=== PATIENT | female | born 1950 | race Caucasian/White ===

== ENCOUNTER 2021-01-24 10:18 | Inpatient (IN) | payer OTHER ==
[~2021-01-24] VITALS: Ht 162.6 cm; Wt 69.9 kg
[2021-01-24] MEDS ORDERED: NEURONTIN 300M300 M2 PO ×2 (15:46→15:47)
[2021-01-24] MEDS ORDERED: CHILDREN'S ASPI81 M1 PO (15:48)
[2021-01-24] MEDS ORDERED: PLAVIX 75 MG TA75 MG PO (15:50)
[2021-01-24] MEDS ORDERED: ZYRTEC10 M5 PO (15:50)
[2021-01-24] MEDS ORDERED: BENTYL 10 MG CA10 MG PO (15:51)
[2021-01-24] MEDS ORDERED: NORCO5 PO (15:52)
[2021-01-24] MEDS ORDERED: LOPERAMIDE 2 MG2 M1 PO (15:53)
[2021-01-24] MEDS ORDERED: NAPROSYN500 M1 PO (15:54)
[2021-01-24] MEDS ORDERED: TOPROL XL25 MG PO (15:54)
[2021-01-24] MEDS ORDERED: PROTONIX 20 MG20 MG PO (15:55)
[2021-01-24] MEDS ORDERED: ZOLOFT 50 MG TA50 MG PO (15:56)
[2021-01-24] MEDS ORDERED: TIZANIDINE HCL2 M1 PO (15:56)
[2021-01-24 17:42] LABS: HEMATOCRIT 33.7 % (37.0-47.0); HEMOGLOBIN 11.1 gm/dL (12.0-15.0); MCH 29.2 pg (26.0-34.0); MCHC 33.1 g/dL (28.0-37.0); MCV 88.3 fL (80.0-100.0); RBC 3.81 mil/uL (4.20-5.00); RDW 14.1 % (10.5-14.5); WBC 6.9 thou/uL (4.0-11.0)
[2021-01-24 17:46] LABS: CREATININE 0.8 mg/dL (0.6-1.0); POTASSIUM 3.3 mmol/L (3.5-5.1)
[2021-01-24 20:13] VITALS: BP 106/65
[2021-01-24 23:40] VITALS: BP 117/72
[2021-01-25 04:37] VITALS: BP 128/75
[2021-01-25 04:52] LABS: HEMATOCRIT 33.2 % (37.0-47.0); MCH 29.2 pg (26.0-34.0); MCV 88.3 fL (80.0-100.0); RBC 3.76 mil/uL (4.20-5.00); RDW 14.3 % (10.5-14.5); WBC 7.9 thou/uL (4.0-11.0)
[2021-01-25 05:51] LABS: CALCIUM 8.9 mg/dL (8.5-10.1); CREATININE 0.7 mg/dL (0.6-1.0); POTASSIUM 3.6 mmol/L (3.5-5.1)
[2021-01-25 07:53] VITALS: BP 129/87
[2021-01-25 12:00] VITALS: BP 116/78
[2021-01-25 15:40] VITALS: BP 112/75
[2021-01-25 19:35] VITALS: BP 125/76
[2021-01-26 04:24] LABS: HEMATOCRIT 35.2 % (37.0-47.0); HEMOGLOBIN 11.7 gm/dL (12.0-15.0); MCH 29.4 pg (26.0-34.0); MCHC 33.3 g/dL (28.0-37.0); MCV 88.4 fL (80.0-100.0); RBC 3.98 mil/uL (4.20-5.00); RDW 14.3 % (10.5-14.5); WBC 10.9 thou/uL (4.0-11.0)
[2021-01-26 04:36] VITALS: BP 109/76
[2021-01-26 08:00] VITALS: BP 139/86
[2021-01-26 11:50] VITALS: BP 125/83
--- NOTE | 2021-01-26 15:22 | HC ---
[facility] [place] [address] CONSULTATION Name: KARENCHAPARRITA Room #: 219-P ADM IN M.R.#: [id number] Admission: 01/24/21 Attend Phys: Gino Esposito MD Discharge: Date of : 54 Report #: [id number] THIS REPORT FOR: cc: Twila Mcdaniels MD, Pamela MD Forman,Corey Munoz MD ~ DATE OF SERVICE: 01/25/2021 We were asked to see Chaparrita followed by Dr. Romero. The patient was transferred here from [facility]. HISTORY OF PRESENT ILLNESS: The patient has a history of myocardial infarct on 01/07. A right coronary stent was placed. Bare metal stent was used. There was some hope that the patient would return for stenting for circumflex and LAD lesions, but circumflex lesion did not appear amenable to stent placement when this was attempted and the patient has had unstable angina since that time. The patient was transferred here for definitive treatment. Integrilin was started to bridge the patient over as she was on full dose anticoagulation with Plavix. We note that the catheterization also shows a high-grade proximal posterior descending stenosis, high-grade LAD, diagonal and circumflex lesions. Left ventricular function is satisfactory overall with some inferior apical hypokinesis. PAST MEDICAL HISTORY: Significant for hypertension. The patient denies diabetes mellitus. ALLERGIES: No known allergies, but the patient is INTOLERANT TO LIPITOR. PAST HISTORY: Significant for benign lung lesion. 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 SOCIAL HISTORY: The patient is retired. 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 She is and lives in the area. REVIEW OF SYSTEMS: I agree with the review of systems as dictated by the patient. PHYSICAL EXAMINATION: GENERAL: The patient is sitting in chair comfortably. VITAL SIGNS: Temperature 36.5, heart rate 71, respiratory rate 70, blood pressure 129/87, O2 sat 95 on room air. HEENT: No scleral icterus. No arcus. [facility] [address] [place] [address] CONSULTATION Name: CHAPARRITA JONES Room #: 219-P [facility] IN M.R.#: [id number] Admission: 01/24/21 Attend Phys: Gino Esposito MD Discharge: Date of : 54 Report #: [id number] NECK: No mass, no bruit. CHEST: Clear to auscultation. HEART: Rhythm regular, no murmur. ABDOMEN: Soft. EXTREMITIES: No clubbing, cyanosis or edema. SKIN: No rash or infection. NEUROLOGIC: No motor or sensory dysfunction. MUSCULOSKELETAL: No bone or joint asymmetry or deformity. PSYCHIATRIC: Oriented x3, answers questions appropriately and shows insight into problem. ASSESSMENT AND PLAN: The patient has important 3-vessel coronary artery disease and we note recent bare-metal stent placement. The patient is on an Integrilin bridge until scheduled coronary surgery, which is Wednesday. Risks and details were discussed. Options and alternatives were reviewed. Risks include, but are not limited to, bleeding, infection, anesthesia risks, heart and lung problems, stroke, . The patient understands all of this and she wishes to proceed and agrees with the plan as discussed. Thank you for asking us to see this patient It is a privilege to participate in her care. <ELECTRONICALLY SIGNED> By: Corey Moon MD 01/26/21 1522 1054 1321 Corey Moon MD /nt
[2021-01-26 15:46] VITALS: BP 117/77
[2021-01-26 19:54] VITALS: BP 125/83
[2021-01-27 04:24] VITALS: BP 129/90
--- NOTE | 2021-01-27 06:52 | EKG ---
[address] [address] ELECTROCARDIOGRAM REPORT Name: SWETA JONESYCDulce FALCON Room #: 219-P ADM IN M.R.#: [id number] Admission: 01/24/21 Attend Phys: Gino Esposito MD Discharge: Date of : 54 Report #: [id number] [facility] Test Date: 2021-01-26 Test Time: 10:05:41 Pat Name: KAROL JONES Department: Room: 219 P Gender: F Claim Professional: ABDIRAHMAN : 1950 Requested By: Kp Romero Order Number: [id number] : Harman Goel Measurements Intervals [place] Rate: 85 P: 48 VT: 156 QRS: -33 QRSD: 93 T: -45 QT: 352 QTc: 419 Interpretive Statements Sinus rhythm Inferior infarct, age indeterminate, suspect recent No previous ECG available for comparison Electronically Signed On 01-27-2021 6:52:20 ACETYLENE OPERATOR by Harman Goel [email or web address] <ELECTRONICALLY SIGNED> By: Harman Goel MD, [facility] 01/27/21 0652 1005 1005 Harman Goel MD, FACC /EPI
[2021-01-27 07:55] VITALS: BP 114/67
[2021-01-27 11:43] VITALS: BP 126/87
[2021-01-27 15:28] VITALS: BP 111/77
[2021-01-27 19:07] VITALS: BP 126/79
[2021-01-28] VITALS (8 sets, daily range): BP systolic 102–125; BP diastolic 56–76
[2021-01-28 12:00] LABS: POC BE 1 mmol/L (-2.0 to +3.0); POC CA IONIZED 4.8 mg/dL (4.5-5.3); POC GLUCOSE 124 mg/dL (70-99); POC HCO3 25.1 mmol/L (22.0-26.0); POC HEMOGLOBIN 11.6 g/dL (12.0-15.0); POC POTASSIUM 3.9 mmol/L (3.5-5.1); POC SODIUM 140 mmol/L (136-145); POC pCO2 35.9 mmHg (35.0-45.0); POC pH 7.452 (7.360-7.450)
[2021-01-28 12:08] LABS: WBC 15.1 thou/uL (4.0-11.0)
[2021-01-28 12:09] LABS: MCHC 32.5 g/dL (28.0-37.0); MCV 89.2 fL (80.0-100.0); RBC 2.09 mil/uL (4.20-5.00); RDW 14.5 % (10.5-14.5)
[2021-01-28 12:12] LABS: HEMATOCRIT 18.7 % (37.0-47.0)
[2021-01-28 12:14] LABS: HEMOGLOBIN 6.1 gm/dL (12.0-15.0)
[2021-01-28 12:25] LABS: APTT 30.5 Seconds (24.5-32.8); INR 1.57; PROTIME 16.8 Seconds (10.5-12.1)
[2021-01-28 13:11] LABS: POC BE -4 mmol/L (-2.0 to +3.0); POC CA IONIZED 4.1 mg/dL (4.5-5.3); POC GLUCOSE 144 mg/dL (70-99); POC HCO3 20.6 mmol/L (22.0-26.0); POC HEMOGLOBIN 6.8 g/dL (12.0-15.0); POC POTASSIUM 4.1 mmol/L (3.5-5.1); POC SODIUM 140 mmol/L (136-145); POC pCO2 30.5 mmHg (35.0-45.0); POC pH 7.438 (7.360-7.450)
[2021-01-28 13:11] LABS: POC BE -2 mmol/L (-2.0 to +3.0); POC CA IONIZED 4.1 mg/dL (4.5-5.3); POC GLUCOSE 134 mg/dL (70-99); POC HCO3 21.6 mmol/L (22.0-26.0); POC HEMOGLOBIN 7.1 g/dL (12.0-15.0); POC POTASSIUM 4.2 mmol/L (3.5-5.1); POC SODIUM 139 mmol/L (136-145); POC pCO2 31.4 mmHg (35.0-45.0); POC pH 7.446 (7.360-7.450)
[2021-01-28 13:11] LABS: POC BE -9 mmol/L (-2.0 to +3.0); POC CA IONIZED 3.7 mg/dL (4.5-5.3); POC GLUCOSE 83 mg/dL (70-99); POC HCO3 15.3 mmol/L (22.0-26.0); POC HEMOGLOBIN 8.2 g/dL (12.0-15.0); POC POTASSIUM 2.4 mmol/L (3.5-5.1); POC SODIUM 147 mmol/L (136-145); POC pCO2 23.6 mmHg (35.0-45.0); POC pH 7.419 (7.360-7.450)
[2021-01-28 13:11] LABS: POC BE -2 mmol/L (-2.0 to +3.0); POC CA IONIZED 4.7 mg/dL (4.5-5.3); POC GLUCOSE 144 mg/dL (70-99); POC HCO3 23.6 mmol/L (22.0-26.0); POC HEMOGLOBIN 9.9 g/dL (12.0-15.0); POC POTASSIUM 3.5 mmol/L (3.5-5.1); POC SODIUM 141 mmol/L (136-145); POC pCO2 42.6 mmHg (35.0-45.0); POC pH 7.351 (7.360-7.450)
[2021-01-28 13:12] LABS: POC BE -1 mmol/L (-2.0 to +3.0); POC CA IONIZED 5.2 mg/dL (4.5-5.3); POC GLUCOSE 161 mg/dL (70-99); POC HCO3 23.2 mmol/L (22.0-26.0); POC HEMOGLOBIN 6.5 g/dL (12.0-15.0); POC POTASSIUM 3.9 mmol/L (3.5-5.1); POC SODIUM 141 mmol/L (136-145); POC pCO2 34.9 mmHg (35.0-45.0); POC pH 7.432 (7.360-7.450)
[2021-01-28 13:12] LABS: POC BE -3 mmol/L (-2.0 to +3.0); POC CA IONIZED 4.5 mg/dL (4.5-5.3); POC GLUCOSE 140 mg/dL (70-99); POC HCO3 22.5 mmol/L (22.0-26.0); POC HEMOGLOBIN 8.8 g/dL (12.0-15.0); POC POTASSIUM 3.6 mmol/L (3.5-5.1); POC SODIUM 144 mmol/L (136-145); POC pCO2 42.3 mmHg (35.0-45.0); POC pH 7.333 (7.360-7.450)
[2021-01-28 13:12] LABS: POC BE 1 mmol/L (-2.0 to +3.0); POC CA IONIZED 4.1 mg/dL (4.5-5.3); POC GLUCOSE 165 mg/dL (70-99); POC HCO3 25.4 mmol/L (22.0-26.0); POC HEMOGLOBIN 6.8 g/dL (12.0-15.0); POC POTASSIUM 4.5 mmol/L (3.5-5.1); POC SODIUM 140 mmol/L (136-145); POC pCO2 39.7 mmHg (35.0-45.0); POC pH 7.415 (7.360-7.450)
[2021-01-28 13:12] LABS: POC BE 0 mmol/L (-2.0 to +3.0); POC GLUCOSE 161 mg/dL (70-99); POC HEMOGLOBIN 7.1 g/dL (12.0-15.0); POC POTASSIUM 4.3 mmol/L (3.5-5.1); POC SODIUM 141 mmol/L (136-145); POC pCO2 33.8 mmHg (35.0-45.0)
--- NOTE | 2021-01-28 13:17 | HC ---
[facility] [place] [address] CONSULTATION Name: KAROL JONES Room #: 219-P ADM IN M.R.#: [id number] Admission: 01/24/21 Attend Phys: Gino Esposito MD Discharge: Date of : 54 Report #: [id number] THIS REPORT FOR: cc: Twila Mcdaniels MD,Twila Cuba,Bill JIN ~ DATE OF SERVICE: 01/24/2021 REASON FOR CONSULTATION: Coronary artery disease with multivessel disease. Her hot top liner is Dr. Kp Romero. The patient is being admitted under Dr. Roman. HISTORY OF PRESENT ILLNESS: The patient is a 70-year-old pleasant female known to Dr. Romero's office, was transferred from [place] to [facility] for evaluation for possible coronary artery bypass grafting. The patient had a recent cardiac catheterization, did develop hematoma secondary to the cardiac catheterization in the leg and abdominal wall. The patient did call in having chest pain and was seen in the Emergency Department at [place]. At that point, it was found that she was a bit anemic and was given a unit of blood. The patient denies any current chest pain. She was having chest pain prior to the blood transfusion. She does have significant stenosis in multiple areas identified after cardiac catheterization and the patient sent over here for evaluation. She also has been on Plavix and we will be holding any Plavix doses and starting Integrilin as of tomorrow. CURRENT MEDICATIONS: As follows: 1. Metoprolol 12.5 mg every other day. 2. Crestor. 3. Zoloft. 4. Dicyclomine. 5. Neurontin. 6. Mobic. 7. Hydrocodone for back pain. 8. Aspirin 81 mg. 9. Previously Plavix, but has been held. Last dose was yesterday. ALLERGIES: No known allergies, but SHE IS INTOLERANT TO LIPITOR. PAST MEDICAL HISTORY: Significant for benign lung lesion removed previously, which required subsequently paralyzed right hemidiaphragm, history of hyperlipidemia. No diabetes, no hypertension. FAMILY HISTORY: Negative for heart disease. SOCIAL HISTORY: She is . She is a retired nurse, currently works with [employer]. Denies any smoking or use of alcohol. [place] [address] CONSULTATION Name: KAROL JONES Room #: 219-P [facility] IN .R.#: [id number] Admission: 01/24/21 Attend Phys: Gino Esposito MD Discharge: Date of : 54 Report #: [id number] in [place]. REVIEW OF SYSTEMS: The patient denies any fatigue, difficulty sleeping. Denies any headache, dizziness, or hearing loss. Denies any shortness of breath, dyspnea on exertion, orthopnea. Denies wheezing or coughing. The patient did state she had chest pain a few days ago, but is denying any at this current time. Denies any jaw pain, arm pain, or murmurs. Denies any skin rashes, psoriasis, or eczema. Denies cold feet, night sweats, or lack of concentration. Denies nausea, vomiting, diarrhea or constipation. Denies urinary frequency, hematuria or dysuria. Denies seizures or neuropathy. Denies hallucinations, depression, or anxiety. Denies any lupus, rheumatoid arthritis, or celiac disease. PHYSICAL EXAMINATION: GENERAL: The patient is well-developed, well-nourished, has normal speech and mentation. HEENT: Her eyes are PERRLA. She has a little slight ptosis of upper lids bilaterally. She is normocephalic. Gaze appearing conjugate in all positions. No evidence of nystagmus. No carotid bruits detected. LUNGS: Clear and equal. ABDOMEN: Soft, nontender. Bowel sounds are present in all quadrants. SKIN: Color is normal. No jaundice and also has a normal skin turgor. EXTREMITIES: She has 5/5 strength in all muscle groups. Cranial nerves II-XII are examined and intact. NEUROLOGIC: The patient is alert and oriented x 3. LABORATORY DATA: As follows: White blood cell count 8.5, hemoglobin 9.8, hematocrit 29.8, platelets 222. Sodium 144, potassium 3.6, chloride is 107, CO2 is 32, BUN is 10, creatinine 0.6 and glucose is 101. A1c is 5.9. The patient did have elevated troponin coming from [place], which previously was 173. COVID is negative. MRSA is negative. UA is also negative. Carotid ultrasound study was done. No significant stenosis noted. Echo done shows 60% ejection fraction. Her cardiac catheterization report shows as follows: LAD shows a 90% proximal lesion with a 90% mid lesion, diagonal shows a 60% ostial lesion, and a 90% mid lesion. Circumflex has an 80% proximal with 99% blockage just before the takeoff of the second marginal. Right coronary artery has a long stent with 50% stenosis just beyond the stent and the right PDA is very small, but shows 90% blockage. IMPRESSION: Coronary artery disease with above listed pathology on a patient, who was previously on Plavix and also hyperlipidemia with a right hemidiaphragm. PLAN: We will do a P2Y12 to elicit the responsiveness to Plavix. CBC, BMP to assess after the patient getting a unit of blood from [facility] previous to surgery. We will hold any Plavix. We will start Integrilin bolus at 8:00 a.m. [facility] [address] [place] [address] CONSULTATION Name: KAROL JONES Room #: 219-P ADM IN M.R.#: [id number] Admission: 01/24/21 Attend Phys: Gino Esposito MD Discharge: Date of : 54 Report #: [id number] followed by a drip and continue to watch the patient and proceed on with plans for coronary artery bypass grafting on 01/28/2021. Dr. Moon will be seeing the patient tomorrow as well as Dr. Romero. <ELECTRONICALLY SIGNED> By: ANNABEL Mireles 01/28/21 1317 1429 2344 ANNABEL Mireles /nt
[2021-01-28 13:42] LABS: BE(vivo) -4.9 mmol/L (-2 to +3); HCO3 21.4 mmol/L (22.0-26.0); PCO2 44.8 mmHg (35.0-45.0); PO2 156.8 mmHg (80.0-100.0); pH 7.297 (7.360-7.450); sO2 98.8 % (92.0-98.0)
[2021-01-28 13:48] LABS: HEMATOCRIT 29.9 % (37.0-47.0); MCH 29.2 pg (26.0-34.0); MCHC 32.6 g/dL (28.0-37.0); MCV 89.7 fL (80.0-100.0); RBC 3.34 mil/uL (4.20-5.00); WBC 15.1 thou/uL (4.0-11.0)
[2021-01-28 13:52] LABS: HEMOGLOBIN 9.8 gm/dL (12.0-15.0)
[2021-01-28 14:00] LABS: CALCIUM 7.9 mg/dL (8.5-10.1); CREATININE 0.7 mg/dL (0.6-1.0); MAGNESIUM 2.1 mg/dL (1.8-2.4); POTASSIUM 3.7 mmol/L (3.5-5.1)
[2021-01-28 14:03] LABS: INR 1.08; PROTIME 11.7 Seconds (10.5-12.1)
[2021-01-28 19:11] LABS: BE(vivo) -12.6 mmol/L (-2 to +3); HCO3 11.7 mmol/L (22.0-26.0); PO2 144.5 mmHg (80.0-100.0); pH 7.363 (7.360-7.450); sO2 98.8 % (92.0-98.0)
[2021-01-28 19:13] LABS: PCO2 21.1 mmHg (35.0-45.0)
[2021-01-28 20:01] LABS: BE(vivo) -9.1 mmol/L (-2 to +3); HCO3 15.9 mmol/L (22.0-26.0); PCO2 30.8 mmHg (35.0-45.0); PO2 145.9 mmHg (80.0-100.0); sO2 98.8 % (92.0-98.0)
[2021-01-29 01:37] VITALS: BP 115/72
[2021-01-29 05:38] VITALS: BP 107/64
[2021-01-29 06:11] LABS: HEMOGLOBIN 8.2 gm/dL (12.0-15.0); MCH 30.5 pg (26.0-34.0); MCV 89.7 fL (80.0-100.0); RBC 2.68 mil/uL (4.20-5.00); RDW 14.9 % (10.5-14.5); WBC 10.2 thou/uL (4.0-11.0)
[2021-01-29 06:17] LABS: CALCIUM 8.3 mg/dL (8.5-10.1); CREATININE 0.7 mg/dL (0.6-1.0); MAGNESIUM 2.1 mg/dL (1.8-2.4); POTASSIUM 3.6 mmol/L (3.5-5.1)
--- NOTE | 2021-01-29 07:19 | EKG ---
[address] [address] ELECTROCARDIOGRAM REPORT Name: KAROL JONES Room #: 251-P ADM IN M.R.#: [id number] Admission: 01/24/21 Attend Phys: Gino Esposito MD Discharge: Date of : 54 Report #: [id number] [facility] Test Date: 2021-01-28 Test Time: 14:22:39 Pat Name: KAROL JONES Department: Room: [facility] Gender: F Maltster: STEPHEN : 1950 Requested By: Bill Cuba Order Number: [id number] MD: Harman Goel Measurements Intervals [place] Rate: 95 P: 63 AK: 159 QRS: 14 QRSD: 139 T: -77 QT: 393 QTc: 494 Interpretive Statements Sinus rhythm Nonspecific intraventricular conduction delay Inferoposterior infarct, recent Lateral leads are also involved Compared to ECG 01/26/2021 10:05:41 Intraventricular conduction delay now present Myocardial infarct finding still present Electronically Signed On 01-29-2021 7:19:05 INVESTMENT REPRESENTATIVE by Harman Goel [email or web address] <ELECTRONICALLY SIGNED> By: Harman Goel MD, FACC 01/29/21 0719 142 142 Harman Goel MD, FAC /EPI
[2021-01-29 13:37] VITALS: BP 106/63
--- NOTE | 2021-01-29 15:43 | EKG ---
[address] [place] [address] ELECTROCARDIOGRAM REPORT Name: SWETA JONESYCE EZEKIEL Room #: 251- ADM IN M.R.#: [id number] Admission: 01/24/21 Attend Phys: Gino Esposito MD Discharge: Date of : 54 Report #: [id number] [facility] Test Date: 2021-01-29 Test Time: 07:47:20 Pat Name: KAROL JONES Department: Room: 251 Gender: F Cnc Cutting Operator: STEPHEN : 1950 Requested By: Bill Cuba Order Number: [id number] MD: Harman Goel Measurements Intervals [place] Rate: 86 P: 43 DE: 147 QRS: -1 QRSD: 88 T: -14 QT: 385 QTc: 461 Interpretive Statements Sinus rhythm Abnormal R-wave progression, early transition LVH by voltage Inferior infarct, age indeterminate Lateral leads are also involved Compared to ECG 01/28/2021 14:22:39 Left ventricular hypertrophy now present Intraventricular conduction delay no longer present Myocardial infarct finding still present Electronically Signed On 01-29-2021 15:43:01 NUCLEAR WASTE MANAGEMENT ENGINEER by Harman Goel [email or web address] <ELECTRONICALLY SIGNED> By: Harman Goel MD, FAC 01/29/21 1543 0747 0747 Harman Goel MD, [facility] /EPI
--- NOTE | 2021-01-29 17:28 | HC ---
[facility] [place] [address] CONSULTATION Name: KAROL JONES Room #: 251-P ADM IN M.R.#: [id number] Admission: 01/24/21 Attend Phys: Gino Esposito MD Discharge: Date of : 54 Report #: [id number] THIS REPORT FOR: cc: Twila Mcdaniels MD,Twila Romero,Kp Crews MD FAC ~ cc: Twila Mcdaniels MD DATE OF SERVICE: 01/24/2021 CARDIOLOGY CONSULTATION HISTORY OF PRESENT ILLNESS: The patient is a 70-year-old white female who was transferred from [place] to [facility] today for consideration of coronary artery bypass surgery. The patient apparently had an episode of atrial fibrillation years ago and has been on a beta everardo and aspirin. She presented to [place] on the morning of 01/07 when she awakened at 2 in the morning with chest pain that went intoleft arm. She became short of breath, nauseated, diaphoretic. Ambulance was called. She was brought to [place] at approximately 5 a.m. She was found to be having evidence of acute inferior STEMI. I took her urgently to the cardiac catheterization lab and performed cardiac catheterization from the right femoral artery. The right coronary artery was acutely occluded proximally. Circumflex had a 90% mid stenosis. There was a 90% narrowing of the mid LAD. I then performed an emergent angioplasty and placed two bare metal stents in the right coronary artery. Ejection fraction was preserved. She was started on Plavix. She was discharged 2 days later and the plan was to electively admit her for attempts at stenting of the LAD and circumflex. After discharge, she had no further chest pain. She came to [place] on January 20 as an outpatient. I performed intervention from the left femoral artery. Results showed the stent in the right coronary widely patent. She again was noted to have a 90% narrowing of the mid circumflex and LAD. I attempted angioplasty of the circumflex. However, due to tortuosity and calcification, I could not advance the balloon to the area of stenosis. The procedure was abandoned. She tolerated the procedure well. An Angio-Seal was placed to the left femoral artery. Unfortunately, she developed a large hematoma of the left groin. She was hypotensive following the procedure and was sent to the ICU for observation overnight on dopamine and fluids. Fortunately, she had no further chest pain. She was discharged the following day on January 21 and was taken off the metoprolol, but continued on aspirin and Plavix. She did well until the next day on January 22. She was in bed when she felt pain in her chest and her back. She felt short of breath. She took two nitroglycerin which did not seem to help. She called the ambulance and was brought back to [place] on 01/22 and was admitted. She was noted to have significant anemia from blood loss of the hematoma. She was transfused. Her chest pain resolved. She did undergo an ultrasound of her left femoral artery that showed only hematoma, but no pseudoaneurysm. She underwent a CT [address] [address] CONSULTATION Name: KAROL JONES Room #: 251-P [facility] IN .R.#: [id number] Admission: 01/24/21 Attend Phys: Gino Esposito MD Discharge: Date of : 54 Report #: [id number] scan of the abdomen that showed no evidence of retroperitoneal hematoma. There was a large hematoma. It was decided at this time that the patient would require bypass surgery. She is being transferred today to [facility] for anticipation of the surgery. PAST MEDICAL HISTORY: Significant for previous thoracotomy for removal of a benign lesion in the past and subsequently developed paralyzed right hemidiaphragm. She has a history of hyperlipidemia. No diabetes or hypertension. Previous history of atrial fibrillation. CURRENT MEDICATIONS: Include metoprolol 12.5 mg twice a day, Crestor, Zoloft, dicyclomine, Neurontin for chronic back pain, Mobic, hydrocodone, aspirin. Her Plavix was discontinued on 01/23 in anticipation of surgery. ALLERGIES: SHE HAS A PREVIOUS INTOLERANCE TO LIPITOR. FAMILY HISTORY: Negative for heart disease. SOCIAL HISTORY: She is . She is a retired nurse. Currently, works doing real estate. No smoking, alcohol abuse. Lives with her in [place]. REVIEW OF SYSTEMS: No history of stroke, asthma, liver disease, kidney disease, cancer, chronic skin condition, psychiatric illness. She wears glasses. She has chronic back pain. PHYSICAL EXAMINATION: GENERAL: Revealed a middle-aged female. VITAL SIGNS: Blood pressure 100/60, pulse 60, she is afebrile. HEENT: Mucous membranes moist. She was anicteric. Conjunctivae pink. NECK: Neck veins nondistended. No carotid bruits. CHEST: Clear to auscultation. CARDIAC: Regular rate and rhythm. ABDOMEN: Soft. EXTREMITIES: Had no edema. There is a large hematoma in the left groin area. Dorsalis pedis pulse 1+ bilaterally. SKIN: Cool and dry. NEUROLOGIC: Nonfocal. LABORATORY DATA: Her ECG showed sinus rhythm with evidence of previous inferior infarction, but no acute ST or T-wave changes. Chest x-ray was unremarkable. The patient had an echocardiogram on 01/20 two weeks following her myocardial infarction that showed ejection fraction of 60% with only trace mitral regurgitation. The patient had carotid Doppler study performed in anticipation of bypass surgery that showed no significant stenosis. She also had venous [facility] [address] [place] [address] CONSULTATION Name: KARENKAROL EZEKIEL Room #: 251-P [place] [place] IN M.R.#: [id number] Admission: 01/24/21 Attend Phys: Gino Esposito MD Discharge: Date of : 54 Report #: [id number] mapping performed prior to discharge. IMPRESSION AND RECOMMENDATIONS: 1. Coronary artery disease 2. Recurrent angina. Recommend bypass surgery. The patient's last dose of Plavix was 01/23. The patient is scheduled for bypass surgery at [facility] on January 28. On Wednesday, 01/25, I would start intravenous Integrilin since the patient will be off Plavix and then discontinue 12 hours prior to surgery. In the meantime, I would continue beta blockers as tolerated and aspirin a day. 3. Blood loss anemia. Transfuse to keep hemoglobin over 8. 4. Large hematoma. 5. Hyperlipidemia. The patient is on a statin drug. 6. Chronic back pain. 7. Paralyzed right hemidiaphragm following a thoracotomy. <ELECTRONICALLY SIGNED> By: Kp Romero MD, [facility] 01/29/21 1728 0731 0 Kp Romero MD, FACC /nt
[2021-01-29 22:00] VITALS: BP 112/58
[2021-01-30] VITALS (7 sets, daily range): BP systolic 93–120; BP diastolic 54–66
[2021-01-30 05:36] LABS: HEMATOCRIT 23.8 % (37.0-47.0); HEMOGLOBIN 7.9 gm/dL (12.0-15.0); MCHC 33.3 g/dL (28.0-37.0); MCV 90.1 fL (80.0-100.0); RBC 2.64 mil/uL (4.20-5.00); RDW 15.1 % (10.5-14.5); WBC 12.1 thou/uL (4.0-11.0)
[2021-01-30 05:55] LABS: CALCIUM 8.2 mg/dL (8.5-10.1); CREATININE 0.6 mg/dL (0.6-1.0); POTASSIUM 3.3 mmol/L (3.5-5.1)
[2021-01-31] VITALS (12 sets, daily range): BP systolic 96–122; BP diastolic 56–77
[2021-02-01 04:00] VITALS: BP 114/76
[2021-02-01 06:00] LABS: HEMATOCRIT 26.7 % (37.0-47.0); MCH 30.6 pg (26.0-34.0); MCHC 33.6 g/dL (28.0-37.0); MCV 91.1 fL (80.0-100.0); RBC 2.93 mil/uL (4.20-5.00); RDW 15.4 % (10.5-14.5); WBC 10.4 thou/uL (4.0-11.0)
[2021-02-01 06:13] LABS: CALCIUM 8.9 mg/dL (8.5-10.1); CREATININE 0.6 mg/dL (0.6-1.0); POTASSIUM 3.5 mmol/L (3.5-5.1)
[2021-02-01 07:50] VITALS: BP 107/67
[2021-02-01 11:50] VITALS: BP 91/50
[2021-02-01 15:45] VITALS: BP 107/67
[2021-02-01 20:04] VITALS: BP 110/63
[2021-02-02 04:43] VITALS: BP 135/81
[2021-02-02 07:55] VITALS: BP 110/63
[2021-02-02 12:00] VITALS: BP 121/64
[2021-02-02 16:20] VITALS: BP 107/59
[2021-02-02 20:30] VITALS: BP 109/63
[2021-02-03 04:00] VITALS: BP 136/85
--- NOTE | 2021-02-03 07:35 | EKG ---
[address] [address] ELECTROCARDIOGRAM REPORT Name: SWETA JONESYCE EZEKIEL Room #: 208-P ADM IN M.R.#: [id number] Admission: 01/24/21 Attend Phys: Gino Esposito MD Discharge: Date of : 54 Report #: [id number] [facility] Test Date: 2021-02-01 Test Time: 07:50:03 Pat Name: KAROL JONES Department: Room: 208 P Gender: F Electrical Drafter: : 1950 Requested By: Bill Cuba Order Number: [id number] MD: Harman Goel Measurements Intervals [place] Rate: 81 P: 61 [place]: 149 QRS: 1 QRSD: 91 T: -9 QT: 397 QTc: 461 Interpretive Statements Sinus rhythm Abnormal R-wave progression, early transition Inferior infarct, old Compared to ECG 01/29/2021 07:47:20 Left ventricular hypertrophy no longer present Myocardial infarct finding still present Electronically Signed On 02-03-2021 7:34:51 AD TERMINAL MAKEUP OPERATOR by Harman Goel [email or web address] <ELECTRONICALLY SIGNED> By: Harman Goel MD, FACC 02/03/21 0734 0750 0750 Harman Goel MD, [facility] /EPI
[2021-02-03 08:00] VITALS: BP 8118/84
--- NOTE | 2021-02-03 08:50 | O ---
[facility] [place] [address] OPERATIVE REPORT Name: KAROL JONES Room #: 208-P ADM IN M.R.#: [id number] Admission: 01/24/21 Attend Phys: Gino Esposito MD Discharge: Date of : 54 Report #: [id number] THIS REPORT FOR: cc: Twila Mcdaniels MD, Pamela MD Forman,Corey Munoz MD ~ DATE OF SERVICE: 01/28/2021 PREOPERATIVE DIAGNOSIS: Coronary artery disease. POSTOPERATIVE DIAGNOSIS: Coronary artery disease. OPERATION: Coronary artery bypass x 5 including left internal mammary artery to left anterior descending artery, saphenous vein to diagonal and marginal and saphenous vein to posterior descending and posterolateral branches of the right coronary and endoscopic harvest, left greater saphenous vein. SURGEON: Corey Moon MD RADIOPHARMACIST: ANNABEL Vieira. ANESTHESIA: General. INDICATIONS: The patient is a 70-year-old with multivessel coronary artery disease, referred by Dr. Kp Romero. Patient has bare metal stent in the right coronary placed for an acute infarct approximately 2 weeks ago. The patient had unstable angina and was bridged over to this operation with Integrilin. FINDINGS AND TECHNIQUE: After general anesthesia was established, saphenous vein was harvested using an endoscopic approach and prepared for use as a conduit. Exposure was obtained through median sternotomy. Left internal mammary artery was harvested from chest wall. Pericardial well was made. Cannulation sutures were placed. Heparin was given. Aorta was cannulated. Right atrium was cannulated. Cardioplegia needle was positioned in the aortic root. Retrograde cardioplegic catheter was placed in the coronary sinus. Cardiopulmonary bypass was established. Aorta was cross clamped. Antegrade and retrograde cardioplegia were given. Ice was poured into the pericardial well. The heart was stopped. During electromechanical arrest, the distal anastomoses were performed. An end-to-side anastomosis was made between vein and the posterior lateral branch of the right coronary. Cold cardioplegia was given. The same segment of vein was sewn in end-to-side fashion to the posterior descending artery. Cold cardioplegia was given. [facility] [address] [place] [address] OPERATIVE REPORT Name: KAROL JONES Room #: 208-P [facility] IN M.R.#: [id number] Admission: 01/24/21 Attend Phys: Gino Esposito MD Discharge: Date of : 54 Report #: [id number] A separate segment of vein was sewn in end-to-side fashion to the marginal artery. Cold cardioplegia was given. The same segment of vein was sewn in [id number]-eb-[id number] fashion to the first branch of the large diagonal. Cold cardioplegia was given. Left internal mammary artery was sewn in end-to-side fashion to the left anterior descending artery. Patency of this vessel was checked with the temperature technique and the Doppler. Cold cardioplegia was given. Two proximal anastomoses were performed and these were complete. Warm retrograde cardioplegia was given followed by warm continuous blood to the coronary sinus. When this infusion was complete, crossclamp was removed. De-airing maneuvers were performed. The anastomoses were inspected and found to be satisfactory. As the patient warmed, nice cardiac activity resumed. Chest tubes and pacing wires were placed. A marker was placed around the proximal anastomoses. When the patient was warmed, she was weaned from cardiopulmonary bypass. Venous cannula was removed. Protamine was given, the aortic cannula was removed. Flows were measured in the bypass grafts. When hemostasis was satisfactory, chest was irrigated with antibiotic solution and closed in the usual fashion. The patient was taken to the Intensive Care Unit in good condition having tolerated the procedure well. All counts were reported as correct. <ELECTRONICALLY SIGNED> By: Corey Moon MD 02/03/21 0850 1809 1827 Corey Moon MD /nt
[2021-02-03 12:00] VITALS: BP 86/56
[2021-02-03 14:25] LABS: BF NUCLEATED CELLS 1981 /mm3; BF RBC 72688 /mm3
[2021-02-03 14:35] LABS: CLARITY CLOUDY; COLOR RED; TOTAL VOLUME 65 mL
[2021-02-03 15:00] VITALS: BP 106/65
[2021-02-03 15:51] LABS: SOURCE CHEST
[2021-02-03 17:14] LABS: BF MACROPHAGE 29 %; BF NEUTROPHILS 26 %
[2021-02-03 20:15] VITALS: BP 126/83
[2021-02-03 22:12] LABS: HEMATOCRIT 30.3 % (37.0-47.0); HEMOGLOBIN 9.7 gm/dL (12.0-15.0)
[2021-02-04 04:45] VITALS: BP 122/78
[2021-02-04 08:17] VITALS: BP 125/76
[2021-02-04 09:55] VITALS: BP 122/78
[2021-02-04] MEDS ORDERED: LIDOPATCH1 EACH TRANSDERM ×2 (10:27→14:01)
[2021-02-04 11:55] VITALS: BP 106/61
[2021-02-04 16:19] VITALS: BP 110/59
[2021-02-07 10:07] LABS: BODY FLUID ALBUMIN 2.2 g/dL (Not Estab.); BODY FLUID AMYLASE 30 U/L (()); BODY FLUID GLUCOSE 121 mg/dL (()); BODY FLUID LDH 741 IU/L (()); BODY FLUID PROTEIN 3.1 g/dL (())
[2021-02-08 09:19] LABS: SOURCE CHEST
--- NOTE | 2021-02-11 13:08 | PATH ---
[facility] [address] [place] [address] PATHOLOGY RPT PROCEDURE Name: KAROL JONES Room #: 208-P DIS IN M.R.#: [id number] Admission: 01/24/21 Date of : 54 Discharge: 02/04/21 Report #: [id number] Path Case #: [id number] Note [facility] Accession Number: [id number] TESTS RESULT FLAG UNITS REF RANGE LAB Clinician Provided Cytology Information No. of containers..01 Other (Miscellaneous) Source: LEFT PLEURAL FLUID DIAGNOSIS: LEFT PLEURAL FLUID INCONCLUSIVE. COMMENT, FEW ATYPICAL CELLS PRESENT. NOT DIAGNOSTIC RENZO-EP4 AND CALRETININ NEGATIVE Signed out by: Sergio Pride MD, Pathologist NPI- [id number] Performed by: Carlita Wolfe, Shell Freezing Machine Operator ([facility]) Gross description: 01 15ML, CLOUDY, RED /LCS 02/04/2021 1856 Local FLAG LEGEND: L-Low Normal,H-High Normal,LL-Alert Low,HH-Alert High <-Panic Low,>-Panic High,A-Abnormal,AA-Critical Abnormal Performed at: [address] [place] [address] Sergio Pride MD, Specimen Comment: A courtesy copy of this report has been sent to [phone] Specimen Comment: [id number] Specimen Comment: Report sent to / DR BEAR Specimen Comment: A duplicate report has been generated due to demographic updates. Performed at: [address] [place] [address] [address], [place], [place] [id number] MD Sergio Pride MD Phone: [phone]
== END 2021-02-04 17:52 | disposition home health service (06) | DRG 236 ==
LOC: 2N 10:18 → ICU 13:38 → 2N 01-31 18:22
PROVIDERS: Hospitalist; Internal Medicine Cardiovascular Disease; Physician Assistant; Surgery Vascular Surgery; ADMIT Internal Medicine; ATTEND Internal Medicine
PROC: 02100Z9 Bypass Coronary Artery, One Artery from Left Internal Mammary, Open Approach (ICD-10-PCS; principal; 2021-01-28)
PROC: 30233N1 Transfusion of Nonautologous Red Blood Cells into Peripheral Vein, Percutaneous Approach (ICD-10-PCS; principal; 2021-01-28)
PROC: 06BQ4ZZ Excision of Left Saphenous Vein, Percutaneous Endoscopic Approach (ICD-10-PCS; principal; 2021-01-28)
PROC: 5A1221Z Performance of Cardiac Output, Continuous (ICD-10-PCS; principal; 2021-01-28)
PROC: 30233K1 Transfusion of Nonautologous Frozen Plasma into Peripheral Vein, Percutaneous Approach (ICD-10-PCS; principal; 2021-01-28)
PROC: 021309W Bypass Coronary Artery, Four or More Arteries from Aorta with Autologous Venous Tissue, Open Approach (ICD-10-PCS; principal; 2021-01-28)
PROC: 30233R1 Transfusion of Nonautologous Platelets into Peripheral Vein, Percutaneous Approach (ICD-10-PCS; principal; 2021-01-28)
PROC: 0W993ZZ Drainage of Right Pleural Cavity, Percutaneous Approach (ICD-10-PCS; 2021-02-03)
DX: I25.119 Atherosclerotic heart disease of native coronary artery with unspecified angina pectoris (principal); D62 Acute posthemorrhagic anemia; K91.871 Postprocedural hematoma of a digestive system organ or structure following other procedure; Z88.8 Allergy status to other drugs, medicaments and biological substances; E78.5 Hyperlipidemia, unspecified; I10 Essential (primary) hypertension; G89.29 Other chronic pain; I48.91 Unspecified atrial fibrillation; M54.9 Dorsalgia, unspecified; K21.9 Gastro-esophageal reflux disease without esophagitis; J98.6 Disorders of diaphragm; E87.6 Hypokalemia; M62.838 Other muscle spasm; Y82.8 Other medical devices associated with adverse incidents; R53.81 Other malaise; M48.061 Spinal stenosis, lumbar region without neurogenic claudication; Y83.8 Other surgical procedures as the cause of abnormal reaction of the patient, or of later complication, without mention of misadventure at the time of the procedure; S30.1XXA Contusion of abdominal wall, initial encounter; S09.93XA Unspecified injury of face, initial encounter; X58.XXXA Exposure to other specified factors, initial encounter; Z80.59 Family history of malignant neoplasm of other urinary tract organ; I25.2 Old myocardial infarction; Z95.5 Presence of coronary angioplasty implant and graft; Y93.89 Activity, other specified; Y92.89 Other specified places as the place of occurrence of the external cause; Y99.8 Other external cause status; Z79.82 Long term (current) use of aspirin; Z79.899 Other long term (current) drug therapy
CPT/HCPCS: 10078; 10081; 47000; 47001; 47002; 47297; 48889; 50010; 50011; 50249; 50668; 51301; 52259; 52287; 53327; 53358; 54118; 56455; 56524; 56525; 56526; 56527; 56528; 56531; 56534; 56668; 56719; 56760; 56898; 57093; 57167; 58585; 58856; 58901; 58918; 62110; 62950; 65002; 65003; 65020; 65090; 65120; 65130; 65135; 83006; 85076

== ENCOUNTER 2021-02-05 18:50 | Inpatient (IN) | payer OTHER ==
[~2021-02-05] VITALS: Ht 162.6 cm; Wt 69.1 kg
[2021-02-05 18:50] VITALS: BP 90/59
[~2021-02-05 18:50] MED LIST: BENTYL 10 MG CA10 MG PO; CHILDREN'S ASPI81 M1 PO; LIDOPATCH1 EACH TRANSDERM; LOPERAMIDE 2 MG2 M1 PO; NAPROSYN500 M1 PO; NEURONTIN 300M300 M2 PO; NORCO5 PO; PLAVIX 75 MG TA75 MG PO; PROTONIX 20 MG20 MG PO; TIZANIDINE HCL2 M1 PO; TOPROL XL25 MG PO; ZOLOFT 50 MG TA50 MG PO; ZYRTEC10 M5 PO
[2021-02-05 19:25] LABS: ABSOLUTE NEUTROPHILS 7.3 thou/uL (1.4-8.2); BASOPHILS 0.6 % (0.0-2.0); EOSINOPHILS 2.5 % (0.0-3.0); HEMATOCRIT 26.3 % (37.0-47.0); HEMOGLOBIN 8.7 gm/dL (12.0-15.0); LYMPHOCYTES 20.8 % (24.0-44.0); MCH 30.5 pg (26.0-34.0); MCHC 33.2 g/dL (28.0-37.0); MCV 91.9 fL (80.0-100.0); PLATELET COUNT 404 thou/uL (150-400); POLYS 68.1 % (36.0-66.0); RBC 2.86 mil/uL (4.20-5.00); RDW 15.8 % (10.5-14.5); WBC 10.8 thou/uL (4.0-11.0)
[2021-02-05 19:41] LABS: CALCIUM 8.9 mg/dL (8.5-10.1); CREATININE 0.8 mg/dL (0.6-1.0); POTASSIUM 4.6 mmol/L (3.5-5.1)
[2021-02-05 19:49] LABS: APTT 27.6 Seconds (24.5-32.8); INR 0.95; PROTIME 10.4 Seconds (10.5-12.1)
[2021-02-05 19:55] LABS: TOTAL BILIRUBIN 0.5 mg/dL (0.2-1.0); TOTAL PROTEIN 6.6 g/dL (6.4-8.2)
[2021-02-05 20:33] LABS: URINE BILIRUBIN NEGATIVE (Negative); URINE BLOOD NEGATIVE (Negative); URINE CLARITY CLEAR; URINE COLOR YELLOW; URINE GLUCOSE-RANDOM* NEGATIVE (Negative); URINE KETONES NEGATIVE (Negative); URINE LEUKOCYTES-REFLEX NEGATIVE (Negative); URINE NITRITE-REFLEX NEGATIVE (Negative); URINE PROTEIN (DIPSTICK) NEGATIVE (Negative); URINE SPECIFIC GRAVITY <= 1.005 (1.005-1.035); URINE UROBILINOGEN 0.2 E.U./dl (0.2-1.0)
--- NOTE | 2021-02-05 21:10 | NUR ---
LAB AT BEDSIDE OBTAINING BLOOD DRAW
[2021-02-05 23:05] VITALS: BP 97/54
[2021-02-05 23:09] VITALS: BP 97/54
[2021-02-05 23:41] VITALS: BP 114/63
[2021-02-06] VITALS (9 sets, daily range): BP systolic 82–125; BP diastolic 49–73
[2021-02-06 05:39] LABS: HEMATOCRIT 27.9 % (37.0-47.0); HEMOGLOBIN 9.2 gm/dL (12.0-15.0); MCH 30.3 pg (26.0-34.0); MCV 91.9 fL (80.0-100.0); RBC 3.04 mil/uL (4.20-5.00); RDW 16.1 % (10.5-14.5); WBC 9.4 thou/uL (4.0-11.0)
[2021-02-06 06:24] LABS: CALCIUM 8.9 mg/dL (8.5-10.1); CREATININE 0.7 mg/dL (0.6-1.0); POTASSIUM 4.1 mmol/L (3.5-5.1)
--- NOTE | 2021-02-06 08:17 | NUR ---
ASSUME CARE 2330 FROM ED STAFF. PT/VITALS STABLE. INTERMITTENT UPPER BACK PAIN INDICATED. POOR RELIEF FROM TYLENOL. GOOD TOLERANCE TO ACTIVITY. ASSESSMENT CHARTED. BR STABLE. PT DENIES ANY DIZZINESS WHILE GETTING OOB. PLAN IS TO CONTINUE TO MONITOR BP AND MONITOR FORORTHOSTATIC HYPOTENSION,. WILL CONTINUE TOMONITORAND FOLLOW WITH POC
--- NOTE | 2021-02-06 10:15 | EKG ---
[address] [place] [address] ELECTROCARDIOGRAM REPORT Name: KAROL JONES Room #: 214- ADM IN M.R.#: [id number] Admission: 02/05/21 Attend Phys: Gino Esposito MD Discharge: Date of : 54 Report #: [id number] [facility] ED Test Date: 2021-02-05 Test Time: 18:56:40 Pat Name: KAROL JONES Department: Room: 214 Gender: F See Wheeler: MONI : 1950 Requested By: Joao Cervantes Order Number: [id number] MD: Gerard Ash Measurements Intervals [place] Rate: 74 P: 70 WY: 170 QRS: 20 QRSD: 101 T: 20 QT: 428 QTc: 475 Interpretive Statements Sinus rhythm Inferior infarct, old Baseline wander in lead(s) V5 Compared to ECG 02/01/2021 07:50:03 No significant changes Electronically Signed On 02-06-2021 10:15:09 [employer] by Gerard Ash [email or web address] <ELECTRONICALLY SIGNED> By: Gerard Ash MD 02/06/21 1015 1856 1856 MD TRENTON Marcelo
--- NOTE | 2021-02-06 14:12 | NUR ---
PT IS ALERT AND ORIENTED X4. SR ON THE MONITOR AND ROOM AIR. PT HAD COMPLAINT OF BACK PAIN THIS AM WITH NO RELIEF FROM TYLENOL PREVIOUSLY TAKEN. SPOKE WITH DR. LANG AND RECEIVED ORDER FOR PRN HYDROCODONE WHICH DID HELP WITH THE PAIN RELIEF. PT UP STAND BY ASSIST TO BEDSIDE COMMODE. NO COMPLAINTS AT THIS TIME. WILL CONTINUE TO MONITOR.
--- NOTE | 2021-02-06 16:00 | NUR ---
PT CURRENTLY HAS COMPLAINT OF DIZZINESS AND LIGHTHEADEDNESS. COMPLETED ORTHOSTATIC BPs ON PT. NOTIFIED DR. AUSTIN. WAS GIVEN ORDERS FOR 500ML FLUID BOLUS. WILL CONTINUE TO MONITOR.
--- NOTE | 2021-02-06 17:58 | NUR ---
PT STATED THAT SHE IS NOT FEELING DIZZY OR LIGHTHEADED AFTER THE FLUID BOLUS. BP IMPROVED. WILL CONTINUE TO MONITOR.
[2021-02-07 04:22] VITALS: BP 88/53
[2021-02-07 05:55] VITALS: BP 111/62
[2021-02-07 07:35] VITALS: BP 119/70
--- NOTE | 2021-02-07 08:01 | NUR ---
pt resting quietly in room thru the noc, fluids infusing, prn pain meds given for incisional, and back pain, states she feels dizzy if her hr rate drops when she sits up, will con't to monitor per ppoc.
[2021-02-07 11:50] VITALS: BP 125/72
--- NOTE | 2021-02-07 18:32 | NUR ---
PT RESTED COMFORTABLY IN BED THROUGHOUT THE SHIFT. UP TO BEDSIDE COMMODE WITH STANDBY ASSIST WITHOUT DIFFICULTY. PT BLOOD PRESSURE REMIANED STABLE THROUGHOUT. PT ONLY COMPLAINTS WAS BACK PAIN, RELIEVED WITH MEDICATION AND ICE. PT DENIED ANY OTHER COMPLAINTS.
[2021-02-07 19:21] VITALS: BP 129/76
[2021-02-07 23:33] VITALS: BP 140/79
[2021-02-08 05:14] VITALS: BP 108/61
--- NOTE | 2021-02-08 07:26 | NUR ---
assaumed pt care at 1900, alert and oriented, bp stable throughout the shift, sr on tele, assessments as charted, fluids infusing as per orders, no distress noted, report given to day shift RN
[2021-02-08 07:30] VITALS: BP 126/83
--- NOTE | 2021-02-08 07:50 | 2DMMODE ---
[facility] [place] [address] 2 D/M-MODE ECHOCARDIOGRAM Name: KAROL JONES Room #: 214-P ADM IN M.R.#: [id number] Admission: 02/05/21 Attend Phys: Gino Esposito MD Discharge: Date of : 54 Report #: [id number] THIS REPORT FOR: cc: Twila Mcdaniels MD, Pamela MD Park, Jin S. MD ~ APPROVED REPORT Study performed: 02/07/2021 12:35:52 EXAM: Comprehensive 2D, Doppler, and color-flow Echocardiogram Patient Location: Bedside Room #: 214 Status: on-call BSA: 1.74 HR: 87 bpm BP: 119/70 mmHg Rhythm: NSR Other Information Study Quality: Technically Difficult Technically limited study due to inability to position patient, recent CABG. Indications CAD Syncope Recent CABG 2D Dimensions IVSd: 11.30 (7-11mm) LVOT Diam: 19.93 (18-24mm) LVDd: 50.94 mm PWd: 10.01 (7-11mm) Ascending Ao: 29.77 (22-36mm) LVDs: 36.09 (25-40mm) Left Atrium: 33.00 (27-40mm) Aortic Root: 27.58 mm Volumes Left Atrial Volume (Systole) Single Plane 4CH: 40.55 mL Single Plane 2CH: 25.55 mL LA ESV Index: 22.00 mL/m2 Aortic Valve AoV Peak Nasim.: 1.36 m/s [facility] [employer] [place] [address] 2 D/M-MODE ECHOCARDIOGRAM Name: KAROL JONES Room #: 214-P [facility] IN M.R.#: [id number] Admission: 02/05/21 Attend Phys: Gino Esposito, Discharge: Date of : 54 Report #: [id number] AO Peak Gr.: 7.43 mmHg LVOT Max P.82 mmHg LVOT Max V: 1.10 m/s DAYSI Vmax: 2.51 cm2 Mitral Valve E/A Ratio: 1.4 MV Decel. Time: 155.36 ms MV E Max Nasim.: 1.01 m/s MV A Nasim.: 0.71 m/s MV PHT: 45.05 ms IVRT: 92.27 ms Pulmonary Valve PV Peak Nasim.: 1.15 m/s PV Peak Gr.: 5.30 mmHg Pulmonary Vein P Vein S: 0.68 m/s P Vein A: 0.22 m/s P Vein D: 0.61 m/s P Vein A Dur.: 78.4 msec P Vein S/D Ratio: 1.11 Tricuspid Valve TR Peak Nasim.: 2.34 m/s TR Peak Gr.: 21.90 mmHg PA Pressure: 32.00 mmHg Left Ventricle The left ventricle is normal size. There is normal LV segmental wall motion. There is normal left ventricular wall thickness. The left ventricular systolic function is normal. The left ventricular ejection fraction is within the normal range. LVEF is 55-60%. Grade II - pseudonormal filling dynamics. Right Ventricle The right ventricle is normal size. The right ventricular systolic function is normal. Atria The left atrium size is normal. The right atrium size is normal. Aortic Valve The aortic valve is normal in structure. No aortic regurgitation is present. There is no aortic valvular stenosis. Mitral Valve The mitral valve is normal in structure. There is no mitral valve [facility] [address] [place] [address] 2 D/M-MODE ECHOCARDIOGRAM Name: SWETA JONESYCE EZEKIEL Room #: 214-[facility] IN .R.#: [id number] Admission: 02/05/21 Attend Phys: Gino Esposito, Discharge: Date of : 54 Report #: [id number] regurgitation noted. No evidence of mitral valve stenosis. Tricuspid Valve The tricuspid valve is normal in structure. There is trace tricuspid regurgitation. Estimated PAP 32 mmHg. There is mild pulmonary hypertension. Pulmonic Valve The pulmonary valve is normal in structure. There is no pulmonic valvular regurgitation. Great Vessels The aortic root is normal in size. IVC is dilated and collapses >50% with inspiration. Pericardium There is no pericardial effusion. <Conclusion> The left ventricle is normal size. There is normal left ventricular wall thickness. The left ventricular systolic function is normal. Grade II - pseudonormal filling dynamics. The right ventricle is normal size. The left atrium size is normal. The aortic valve is normal in structure. There is no mitral valve regurgitation noted. There is trace tricuspid regurgitation. Estimated PAP 32 mmHg. There is no pericardial effusion. <ELECTRONICALLY SIGNED> By: Gerard Ash MD 02/08/21749 9 9 Gerard Ash MD /INF
[2021-02-08 12:00] VITALS: BP 112/65
[2021-02-08 16:30] VITALS: BP 136/86
--- NOTE | 2021-02-08 17:24 | NUR ---
PT RESTED COMFORTABLE IN BED THROUGHOUT SHIFT. BLOOD PRESSURE HAVE BEEN WITHIN NORMAL RANGES. BACK PAIN HAS BEEN RELIEVED WITH ICE AND MEDICATION. PT DENIES ANY OTHER COMPLAINTS.
[2021-02-08 20:15] VITALS: BP 126/68
[2021-02-09 04:45] VITALS: BP 115/75
--- NOTE | 2021-02-09 06:26 | NUR ---
ASSUMED PT CARE AT 1900, ALERT AND ORIENTED, DENIES PAIN THIS SHIFT, SR ON TELE, ASSESSMENTS CHARTED, MEDS GIVEN PER MAY, BP STABLE THIS SHIFT, DENIES HEADACHE OR DIZZINESS, AMBULATES TO THE BATHROOM STBY WITH A WALKER, PROGRESSING WELL TOWARDS POC, PLAN FOR POSSIBLE DC HOME TODAY, WILL PASS ON REPORT
[2021-02-09 07:30] VITALS: BP 115/77
--- NOTE | 2021-02-09 10:55 | NUR ---
Assumed care of pt this AM. Pt is A&O x4, on RA, ST on the monitor. Pt c/o no pain. Midline sternal incision approximating & healing well. Pt up to toilet, c/o no dizziness, SOB. Plan to discharge home today.
[2021-02-09] MEDS ORDERED: NEURONTIN 300M300 M2 PO (11:47)
[2021-02-09 11:55] VITALS: BP 101/61
[2021-02-09 12:10] VITALS: BP 101/61
[2021-02-09 12:40] VITALS: BP 101/61
== END 2021-02-09 12:50 | disposition home or self-care (01) | DRG 312 ==
LOC: ER 18:50 → 2N 20:51 → EROBS 20:51 → 2N 23:19
PROVIDERS: Emergency Medicine; Nurse Practitioner Family; ADMIT Internal Medicine; ATTEND Internal Medicine
DX: I95.1 Orthostatic hypotension (principal); I25.10 Atherosclerotic heart disease of native coronary artery without angina pectoris; D64.9 Anemia, unspecified; F32.A Depression, unspecified; I48.0 Paroxysmal atrial fibrillation; K21.9 Gastro-esophageal reflux disease without esophagitis; R77.8 Other specified abnormalities of plasma proteins; Z20.822 Contact with and (suspected) exposure to COVID-19; Z95.1 Presence of aortocoronary bypass graft; Z95.5 Presence of coronary angioplasty implant and graft; Z90.2 Acquired absence of lung [part of]; Z79.899 Other long term (current) drug therapy; Z88.8 Allergy status to other drugs, medicaments and biological substances; I25.2 Old myocardial infarction; Z80.49 Family history of malignant neoplasm of other genital organs; Z79.82 Long term (current) use of aspirin
CPT/HCPCS: 10081